=== PATIENT | female | born 1995 | race Caucasian/White ===

== ENCOUNTER 2020-10-09 14:54 | Emergency (ER) | payer MEDICAID ==
[~2020-10-09] VITALS: Ht 167.6 cm; Wt 117.5 kg
[2020-10-09 15:13] VITALS: BP 155/74
== END 2020-10-09 16:10 | disposition home or self-care (01) ==
LOC: ER 14:55
DX: F41.9 Anxiety disorder, unspecified (principal); F41.0 Panic disorder [episodic paroxysmal anxiety]
CPT/HCPCS: 99281

== ENCOUNTER 2023-11-03 14:03 | Outpatient (CLI) | payer MEDICAID | END 2023-11-03 23:59 | disposition home or self-care (01) | LOC: RAD 14:03 | PROVIDERS: ATTEND Family Medicine | DX: Z34.91 Encounter for supervision of normal pregnancy, unspecified, first trimester (principal); N91.2 Amenorrhea, unspecified; Z3A.11 11 weeks gestation of pregnancy | CPT/HCPCS: 76801 ==